=== PATIENT | female | born 1990 | race African-American/Black ===

== ENCOUNTER 2016-07-07 08:11 | Inpatient (IN) | payer MEDICAID ==
[~2016-07-07 08:11] MED LIST: COLACE100 MG PO; IBUPROFEN800 MG PO; IRON325 M1 PO; PRENATAL1 EACH
[2016-07-07 09:16] LABS: BASO % 0.3 % (0-2); EOS % 1.3 % (0-7); EOSINOPHIL ABSOLUTE COUNT 0.1 tho/cmm (0.0-0.7); HCT-HEMATOCRIT 27.9 % (34.0-49.0); HGB-HEMOGLOBIN 9.2 gm/dl (12.0-15.5); IMMATURE GRANULOCYTES ABSOLUTE 0.04 tho/cmm (0-0.03); IMMATURE GRANULOCYTES PERCENT 0.5 % (0-0.3); LYMPH % 25.3 % (20-45); LYMPH ABSOLUTE COUNT 1.9 tho/cmm (0.8-4.5); MCH (MEAN CORPUSCULAR HGB) 29.3 pg (28.0-32.0); MCV (MEAN CELL VOLUME) 88.9 fl (82.0-96.0); MEAN PLATELET VOLUME 11.3 cmc (9.4-12.4); MONO % 7.5 % (0-12); MONOCYTE ABSOLUTE COUNT 0.6 tho/cmm (0.0-1.2); NEUTROPHIL ABSOLUTE COUNT 4.9 tho/cmm (1.6-8.0); NEUTROPHIL-AUTOMATED 4.9 tho/cmm (1.6-8.0); NEUTROPHILS % 65.1 % (40-80); PLATELET COUNT 180 tho/cmm (150-450); RED BLOOD COUNT 3.14 mil/cmm (4.00-5.20); RED CELL DISTRIBUTION WIDTH 14.5 % (12.4-16.4); WHITE BLOOD COUNT 7.5 tho/cmm (4.0-10.0)
[2016-07-07 17:58] LABS: CORD BLOOD PH ARTERIAL 7.23 Units (7.18-7.38)
[2016-07-07] MEDS ORDERED: PRENATAL-U CAPS1 CAP PO (20:10)
[2016-07-07] MEDS ORDERED: IRON325 M3 PO (20:11)
[2016-07-07] MEDS ORDERED: IRON325 M3 (20:12)
[2016-07-10] MEDS ORDERED: IBUPROFEN800 M1 PO (19:43)
[2016-07-10] MEDS ORDERED: PERCOCET 5-3251 EACH PO (19:43)
[2016-07-11] MEDS ORDERED: COLACE100 M1 PO (10:44)
== END 2016-07-11 11:45 | DRG 766 ==
LOC: LDR 08:11 → OBGD 19:40
PROVIDERS: ADMIT Obstetrics & Gynecology
PROC: 10D00Z1 Extraction of Products of Conception, Low, Open Approach (ICD-10-PCS; principal; 2016-07-07)
PROC: 10907ZC Drainage of Amniotic Fluid, Therapeutic from Products of Conception, Via Natural or Artificial Opening (ICD-10-PCS; 2016-07-07)
PROC: 3E033VJ Introduction of Other Hormone into Peripheral Vein, Percutaneous Approach (ICD-10-PCS; 2016-07-07)
DX: O76 Abnormality in fetal heart rate and rhythm complicating labor and delivery (principal); O99.02 Anemia complicating childbirth; O99.824 Streptococcus B carrier state complicating childbirth; Z3A.39 39 weeks gestation of pregnancy; Z37.0 Single live birth
CPT/HCPCS: J1170; J2370; J2405; J2540; J2590; J2795; J7121